=== PATIENT | male | born 1940 | race Caucasian/White ===

== ENCOUNTER 2022-01-22 15:32 | Emergency (ER) | payer MEDICARE, SELFPAY ==
[2022-01-22 15:40] VITALS: BP 137/81; PULSE 101; RESP 16; TEMP 37.1; O2SAT 95; BMI 21.2
--- NOTE | 2022-01-22 16:02 | XRR_ITS ---
PROCEDURE INFORMATION: Exam: XR Right Humerus Exam date and time: 01/22/2022 4:02 PM Age: 81 years old Clinical indication: Injury or trauma; Fall; Blunt trauma (contusions or hematomas); Arm, upper; Right; Patient HX: Limited history PT has alzheimer's; Additional info: Pain/fall TECHNIQUE: Imaging protocol: XR Right humerus. Views: 2 or more views. COMPARISON: No relevant prior studies available. FINDINGS: Bones/joints: Normal. Soft tissues: Normal. XR/[place] [id number] IMPRESSION: No acute findings.
--- NOTE | 2022-01-22 16:02 | ED_ITS ---
HPI - Fall General: Chief Complaint: Fall Stated Complaint: Fall and cant walk now Time Seen by Provider: 01/22/22 15:52 Source: patient Mode of arrival: ambulatory Limitations: altered mental status (Chronic dementia) History of Present Illness: 81-year-old male presents emergency room with complaints of pain. Has difficulty ambulating with a walker. He has been holding his right arm saying ouch. Patient has some chronic dementia. 2 days ago he stumbled and fell it was not witnessed there was no evidence of trauma to the head and use no loss consciousness with a difficult time using walker since then. His is main caregiver is concerned that he may have an injury to the right wrist or arm. MD complaint: fall Onset (ago): day(s) (2) Fall from: standing Fall witnessed: no Place fall occurred: home Loss of consciousness: None Prolonged down time: no Context: tripped/slipped Location of injury - extremities: Right: arm Associated symptoms-after fall: Reports neck pain; Denies abdominal pain, chest pain, confusion, difficulty walking, headache(s), hematuria, lightheadedness, numbness, short of breath, vertigo or weakness Review of Systems General: Reports: ROS unobtainable due to mental status (Chronic dementia) Const: Denies: fever(s) or chills ENMT: Denies: throat pain, ear or mastoid pain, nasal discharge or nasal congestion Card: Denies: chest pain or lightheadedness Resp: Denies: dyspnea, productive cough or non-productive cough GI: Denies: abdominal pain : Denies: hematuria Musc: Reports: neck pain, back pain and extremity pain Skin/Breast: Denies: rash or pruritus Neuro: Denies: headache(s), difficulty walking, vertigo or confusion Physical Exam HENMT: COMMON NORMALS: normocephalic, atraumatic and hearing grossly normal bilaterally HEAD & SCALP: normocephalic and atraumatic Eye: COMMON NORMALS: Equal, round and reactive pupils present, EOMs intact bilaterally, conjunctivae normal and no scleral icterus CONJUNCTIVA: Yes conjunctivae normal PUPIL: Yes Equal, round and reactive pupils present Neck/C-Spine: COMMON NORMALS: full ROM, no lymphadenopathy, supple and no JVD Resp: COMMON NORMALS: normal respiratory effort, No retractions, No use of accessory muscles and clear to auscultation bilaterally AUSCULTATION: clear to auscultation bilaterally Cardio: COMMON NORMALS: no JVD, regular rate, regular rhythm and No murmurs present (Cardio) RATE: regular rate RHYTHM: regular rhythm GI: COMMON NORMALS: Soft to palpation and No hepatosplenomegaly present AUSCULTATION: Yes normoactive bowel sounds PALPATION: Yes Soft to palpation, No Tenderness to palpation present (GI), No Guarding due to palpation present (GI) and Yes No hepatosplenomegaly present Extremity: COMMON NORMALS: normal to inspection, capillary refill normal, no clubbing, cyanosis or edema and no pedal edema OTHER: Patient complains of pain with any manipulation of extremities. No deformities no ecchymosis. Skin: COMMON NORMALS: no rashes or lesions noted GENERAL SKIN EXAM: no rashes or lesions noted Course Vital Signs: Vital signs: Vital Signs Temperature 98.7 F 01/22/22 15:40 Pulse Rate 100 01/22/22 18:03 Respiratory Rate 16 01/22/22 18:03 Blood Pressure 132/88 01/22/22 18:03 Pulse Oximetry 96 01/22/22 18:03 MDM - Fall Medical Decision Making Labs and imaging reviewed no acute fractures. Discharge home [id number] medications 8 follow-up as needed return if has problems. Medical Records I reviewed the patient's medical records. Lab Data I reviewed the patient's lab results. : 01/22/22 16:32 01/22/22 16:32 Radiology Impressions Humerus X-Ray 01/22/22 16:02 IMPRESSION: No acute findings. Pelvis X-Ray 01/22/22 16:02 IMPRESSION: 1. 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 2. Constipation. Wrist X-Ray 01/22/22 16:16 IMPRESSION: 1. Negative for fracture or dislocation. 2. Severe 1st carpometacarpal and radiocarpal joint osteoarthritis. Laboratory Results WBC 7.3 10^3/uL (4.0-10.0) 01/22/22 16:32 RBC 4.81 10^6/uL (4.1-5.3) 01/22/22 16:32 Hgb 14.7 g/dL (11.7-16.6) 01/22/22 16:32 Hct 46.8 % (42.0-52.0) 01/22/22 16: MCV 97.3 fl (80-94) H 01/22/22 16: MCH 30.6 pg (28.0-34.0) 01/22/22 16: MCHC 31.4 g/dL (30.0-36.0) 01/22/22 16: RDW 14.8 % (12.1-15.1) 01/22/22 16: Plt Count 179 10^3/cmm (130-400) 01/22/22 16: MPV 9.7 fL (7.4-10.4) 01/22/22 16: Neut % (Auto) 75.6 % 01/22/22 16: Lymph % (Auto) 11.3 % 01/22/22 16: Sherman % (Auto) 9.3 % 01/22/22 16: Eos % (Auto) 2.5 % 01/22/22 16: Baso % (Auto) 1.0 % 01/22/22 16: Neut # (Auto) 5.51 10^3/uL (1.8-7.7) 01/22/22 16: Lymph # (Auto) 0.8 10^3/uL (0.8-4.8) 01/22/22 16: Sherman # (Auto) 0.7 10^3/uL (0.2-0.9) 01/22/22 16: Eos # (Auto) 0.2 10^3/uL (0.0-0.8) 01/22/22 16: Baso # (Auto) 0.1 10^3/uL (0.0-0.1) 01/22/22 16: Nucleated RBC % (auto) 0 % 01/22/22: Nucleated RBCs # 0.0 /100WBC 01/22/22 16: Sodium 139 mmol/L (136-145) 01/22/22 16: Potassium 4.1 mmol/L (3.5-5.1) 01/22/22 16: Chloride 103 mmol/L (98-107) 01/22/22 16: Carbon Dioxide 24 mmol/L (22-29) 01/22/22 16:32 Anion Gap 16.1 (5-19) 01/22/22 16:32 BUN 15 mg/dL (8-23) 01/22/22 16:32 Creatinine 0.8 mg/dL (0.7-1.2) 01/22/22 16:32 GFR Calculation Not Reportable 01/22/22 16:32 Glucose 94 mg/dL (65-115) 01/22/22 16:32 Calculated Osmolality 289 mOsm/kg (285-295) 01/22/22 16:32 Calcium 8.8 mg/dL (8.5-10.5) 01/22/22 16:32 Total Bilirubin 0.8 mg/dL (0.15-1.2) 01/22/22 16:32 AST 12 U/L (0-40) 01/22/22 16:32 ALT 7 U/L (0-41) 01/22/22 16:32 Alkaline Phosphatase 97 IU/L (40-130) 01/22/22 16:32 Total Protein 7.5 g/dL (6.6-8.7) 01/22/22 16:32 Albumin 3.9 g/dL (3.5-5.2) 01/22/22 16:32 Globulin 3.6 g/dL (1.3-4.6) 01/22/22 16:32 Discharge Plan Discharge Patient Disposition: Home Clinical Impression: Fall, Dementia Condition: Stable Prescriptions: No Action donepezil 10 mg tablet 10 mg PO BEDTIME 0RF lovastatin 40 mg tablet 40 mg PO DAILY 0RF prednisone 5 mg tablet 5 mg PO DAILY 0RF olanzapine 5 mg tablet 2.5 mg PO QPM 0RF warfarin 3 mg tablet See Rx Instructions .ROUTE .COMPLEX 0RF Rx Instructions: 3mg po at bedtime on mon,wed and fri and 3.5mg po at bedtime on tue,tu,th,and sat famotidine 20 mg tablet 20 mg PO QPM 0RF metoprolol tartrate 50 mg tablet 50 mg PO BID 0RF timolol maleate 0.5 % drops 1 drp ophthalmic (eye) QAM 0RF Rx Instructions: both eyes dorzolamide 2 % drops 1 drp ophthalmic (eye) BID 0RF Rx Instructions: both eyes Lumigan 0.01 % drops 1 drp ophthalmic (eye) BEDTIME 0RF Rx Instructions: both eyes Aspir-81 81 mg Tablet,Delayed Release (Dr/Ec) 81 mg PO DAILY 0RF Benadryl 25 mg Capsule 12.5 mg PO DAILY 0RF Discharge Orders: Discharge ED (Routine); Ordered 01/22/22 Ordered By: Osito Peralta Discharge Diet: Usual diet Discharge Activity: Increase activity as tolerated Patient Instructions: Opioid Safety Activity Restrictions/Additional Instructions: Follow-up with your primary care doctor within 1 week Tylenol or ibuprofen for aches and pains. Coding Level of Care Code ED Home Health Care Social Worker for Casimiro Fwd Exam Comprehensive
--- NOTE | 2022-01-22 16:02 | XRR_ITS ---
PROCEDURE INFORMATION: Exam: XR Pelvis Exam date and time: 01/22/2022 4:02 PM Age: 81 years old Clinical indication: Injury or trauma; Fall; Blunt trauma (contusions or hematomas); Does not apply; Pelvic region; Patient HX: Limited history PT has alzheimer's; Additional info: Fall pain TECHNIQUE: Imaging protocol: XR pelvis. Views: 1 or 2 view. COMPARISON: No relevant prior studies available. 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 Soft tissues: Unremarkable. Gastrointestinal tract: Constipation. XR/XR pelvis 1-2V* [id number] IMPRESSION: 1. 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 2. Constipation.
--- NOTE | 2022-01-22 16:16 | XRR_ITS ---
PROCEDURE INFORMATION: Exam: XR Right Wrist Exam date and time: 01/22/2022 4:16 PM Age: 81 years old Clinical indication: Injury or trauma; Fall; Blunt trauma (contusions or hematomas); Wrist; Right; Patient HX: Limited history PT has alzheimer's TECHNIQUE: Imaging protocol: XR Right wrist. Views: 3 or more views. COMPARISON: No relevant prior studies available. FINDINGS: Bones/joints: Severe 1st carpometacarpal and radiocarpal joint osteoarthritis. Soft tissues: Normal. XR/XR wrist RT min 3V* [id number] IMPRESSION: 1. Negative for fracture or dislocation. 2. Severe 1st carpometacarpal and radiocarpal joint osteoarthritis.
[2022-01-22 16:25] VITALS: BP 133/78; PULSE 98; RESP 16; O2SAT 95
[2022-01-22 17:10] LABS: Basophils # 0.1 10^3/uL (0.0-0.1); Eosinophils # 0.2 10^3/uL (0.0-0.8); Eosinophils % 2.5 %; Hematocrit 46.8 % (42.0-52.0); Hemoglobin 14.7 g/dL (11.7-16.6); Lymphocytes # 0.8 10^3/uL (0.8-4.8); Lymphocytes % 11.3 %; Mean Corpuscular HGB Conc 31.4 g/dL (30.0-36.0); Mean Corpuscular Hemoglobin 30.6 pg (28.0-34.0); Mean Corpuscular Volume 97.3 fl (80-94); Mean Platelet Volume 9.7 fL (7.4-10.4); Monocytes # 0.7 10^3/uL (0.2-0.9); Monocytes % 9.3 %; Neutrophils # 5.51 10^3/uL (1.8-7.7); Neutrophils % 75.6 %; Nucleated Red Blood Cells % 0 %; Platelet Count 179 10^3/cmm (130-400); Red Blood Count 4.81 10^6/uL (4.1-5.3); Red Cell Distribution Width 14.8 % (12.1-15.1); White Blood Count 7.3 10^3/uL (4.0-10.0)
[2022-01-22 17:18] LABS: Alanine Aminotransferase 7 U/L (0-41); Albumin Level 3.9 g/dL (3.5-5.2); Alkaline Phosphatase 97 IU/L (40-130); Anion Gap 16.1 (5-19); Aspartate Amino Transferase 12 U/L (0-40); Blood Urea Nitrogen 15 mg/dL (8-23); Calcium 8.8 mg/dL (8.5-10.5); Carbon Dioxide 24 mmol/L (22-29); Chloride 103 mmol/L (98-107); Globulin 3.6 g/dL (1.3-4.6); Glucose 94 mg/dL (65-115); Osmolality Calculated 289 mOsm/kg (285-295); Potassium 4.1 mmol/L (3.5-5.1); Sodium 139 mmol/L (136-145); Total Bilirubin 0.8 mg/dL (0.15-1.2); Total Protein 7.5 g/dL (6.6-8.7)
[2022-01-22 18:03] VITALS: BP 132/88; PULSE 100; RESP 16; O2SAT 96
== END 2022-01-22 18:04 | disposition home or self-care (01) ==
PROVIDERS: Emergency Provider Family Medicine
DX: F03.90 Unspecified dementia, unspecified severity, without behavioral disturbance, psychotic disturbance, mood disturbance, and anxiety (principal); Z79.01 Long term (current) use of anticoagulants; Z79.82 Long term (current) use of aspirin; W01.0XXA Fall on same level from slipping, tripping and stumbling without subsequent striking against object, initial encounter
CPT/HCPCS: 72170; 73060; 73110; 80053; 85025; 99283